=== PATIENT | male | born 1955 | race African-American/Black ===

== ENCOUNTER → 2018-01-25 | Outpatient (CLI) | payer BC ==
--- NOTE | 2018-01-25 13:12 | CT ---
EXAMINATION TYPE: CT abdomen pelvis w con DATE OF EXAM: 01/25/2018 COMPARISON: NONE HISTORY: Abdominal pain-bilateral flank pain CT DLP: 1289 mGycm CONTRAST: CT scan of the abdomen and pelvis is performed with Oral Contrast and with IV Contrast, patient injec glynn with 100 mL of Isovue 300. FINDINGS: LUNG BASES-: No visible nodule. No infiltrate. LIVER/GB: No calcified gallstones. No space occupying hepatic lesion. Biliary tree is of normal ca liber. PANCREAS: No inflammation. No distinct mass. SPLEEN: No splenic enlargement. No lesion seen. ADRENALS: No nodule. Left-sided adrenal glandular thickening. KIDNEYS/BLADDER: No hydronephrosis. No nephrolithiasis. No distinct renal mass. Urinary bladder g rossly unremarkable. BOWEL: Normal appendix. Normal bowel caliber. No inflammation. GENITAL ORGANS: No gross abnormality. LYMPH NODES: No greater than 1cm abdominal or pelvic lymph nodes are appreciated. AORTA: No significant abnormality. OSSEOUS STRUCTURES: No significant abnormality is seen. OTHER: Fat-containing left inguinal hernia. IMPRESSION: 1. Adrenal glandular hyperplasia. 2. Fat-containing left inguinal hernia.
== END | disposition home or self-care (01) ==
LOC: RADCTMAIN 10:51
PROVIDERS: ATTEND Family Medicine
DX: K40.90 Unilateral inguinal hernia, without obstruction or gangrene, not specified as recurrent (principal); E27.8 Other specified disorders of adrenal gland
CPT/HCPCS: 74177; Q9967

== ENCOUNTER → 2019-02-28 | Outpatient (CLI) | payer BC ==
--- NOTE | 2019-02-28 14:12 | MR ---
EXAMINATION TYPE: MR cervical spine wo con DATE OF EXAM: 02/28/2019 COMPARISON: None HISTORY: Radiculopathy, cervical region TECHNIQUE: Multiplanar, multisequence images of the cervical spine were acquired. C2-C3: Some left-sided neural foraminal encroachment is present due to uncovertebral joint hypertroph y, facet arthropathy. There is no significant spinal stenosis or evident disc herniation. C3-C4: Posterior extension of endplate disc complex, right base posterior disc bulge causes anterior mass effect on the thecal sac, there is likely contacting the anterior cervical cord, moderate spinal stenosis. Bilateral foraminal encroachment is present due to uncovertebral joint hypertrophy, facet arthropathy change. C4-C5: Bilateral foraminal encroachment is present. No significant spinal stenosis. Minimal posterior disc bulge present. C5-C6: Posterior broad-based disc bulge causes mild anterior mass effect on the thecal sac. There is foraminal encroachment bilaterally. No significant central stenosis. C6-C7: Minimal posterior disc bulge. No significant spinal stenosis or foraminal encroachment. C7-T1: No evidence for degenerative disc disease. No disc bulge/herniation or protrusion. No Canal stenosis. Foramina are patent bilaterally. Cervical segments are intact. There is normal alignment. Cervical spinal cord is abnormal, increase d signal present within the cervical cord to the right of midline at the C3-4 level Craniovertebral j unction relationships are within normal limits. There is loss of disc height and signal at the inter vertebral levels. Multilevel spondylosis is present, there is endplate discogenic marrow signal simon e associated. IMPRESSION: Spinal stenosis, degenerative disc disease, multilevel foraminal encroachment as described. Findings suggest signal cord change on T2-weighted sequences at C3-4 although corresponding signal abnormaliti es not seen with certainty on T1 weighted images, findings could possibly represent artifact, correla te for myelomalacia or possibly gliosis.
== END | disposition home or self-care (01) ==
LOC: RADMRIMAIN 10:32
PROVIDERS: ATTEND Internal Medicine
DX: M48.02 Spinal stenosis, cervical region (principal); M50.10 Cervical disc disorder with radiculopathy, unspecified cervical region
CPT/HCPCS: 72141

== ENCOUNTER → 2020-06-06 | Outpatient (CLI) | payer BC | END | disposition home or self-care (01) | LOC: LABPAT 09:27 | PROVIDERS: ATTEND Surgery | DX: U07.1 COVID-19 (principal) ==

== ENCOUNTER 2020-06-13 06:50 | Day surgery (SDC) | payer BC ==
[2020-06-11 15:31] VITALS: BMI 26.2
[~2020-06-13 06:50] MED LIST: LACTATED RINGERS 1,000 ML IV SCH; LIDOCAINE 1% (10MG/ML) FOR IV START INTRADERMA PRN
[2020-06-13 07:21] VITALS: TEMP 97.3
[2020-06-13 07:32] LABS: Glucose,Whole Blood 121 mg/dL (75-99)
[2020-06-13] MEDS ORDERED: fentaNYL (PF) 50 MCG/ML 2 ML AMP ONE (07:35)
[2020-06-13] MEDS ORDERED: GLYCOPYRROLATE 0.2 MG/ML 2 ML VIAL ONE (07:35)
[2020-06-13] MEDS ORDERED: LIDOCAINE 1% INJ 10MG/ML (20 ML MDV) ONE (07:35)
[2020-06-13] MEDS ORDERED: PROPOFOL 10 MG/ML 20 ML VIAL IV ONE (07:35)
--- NOTE | 2020-06-13 08:16 | P.PCN ---
Date of Procedure: 06/13/20 Preoperative Diagnosis: Screening Postoperative Diagnosis: Internal hemorrhoids Redundant colon Procedure(s) Performed: Colonoscopy Surgeon: Gray Craig Pathology: none sent Condition: stable Disposition: same day Indications for Procedure: 64-year-old male presents for an elective colonoscopy. This is done for screening purposes. He lost endoscopy was greater than 7 years ago. He has no recent complaints of blood in his stool or pain with bowel function. He has no family history of colon cancer. He presents today for screening colonoscopy. Risks, benefits and alternatives to the procedure were provided to the patient. The patient did provide consent prior to attending the endoscopy suite. Operative Findings: Internal hemorrhoids Redundant colon Description of Procedure: The patient was brought into the endoscopy suite and placed in left lateral decubitus position. Adequate sedation was achieved using conscious sedation. A digital rectal exam was performed and mild internal hemorrhoid for palpated. An endoscope was then placed in the rectum and advanced to the cecum as identified by landmarks including the appendiceal orifice and the ileocecal valve. The prep was fair. There was liquid stool noted, however the colon was visualized adequately. The colonoscope was then slowly withdrawn, examining for any mucosal and modalities. The cecum, ascending, transverse, descending and sigmoid colon were visualized adequately. There were no large neoplastic lesions noted throughout the colon. There were no obvious polyps noted throughout the colon. There was no evidence of diverticulosis. The colon was noted to be quite redundant. Retroflexion was performed in the rectum and mild internal hemorrhoids were visible. Excess air was removed, the colonoscope withdrawn and the procedure terminated. The patient was then transferred to the recovery unit in stable condition. Repeat colonoscopy should be completed in 7 years
[2020-06-13 08:20] VITALS: RESP 18
[2020-06-13 08:31] VITALS: BP 122/72; PULSE 70
== END 2020-06-13 08:58 | disposition home or self-care (01) ==
LOC: ORWHC2ENDO 06:50
PROVIDERS: ATTEND Surgery
DX: Z12.11 Encounter for screening for malignant neoplasm of colon (principal); K64.8 Other hemorrhoids; Q43.8 Other specified congenital malformations of intestine; E11.9 Type 2 diabetes mellitus without complications; I10 Essential (primary) hypertension; Z79.84 Long term (current) use of oral hypoglycemic drugs; Z79.899 Other long term (current) drug therapy; Z83.3 Family history of diabetes mellitus
CPT/HCPCS: J2001; J3010; J2704; G0121

== ENCOUNTER → 2021-01-29 | Outpatient (CLI) | payer MEDICARE ==
--- NOTE | 2021-01-30 03:14 | MR ---
EXAMINATION TYPE: MR knee RT wo con DATE OF EXAM: 01/29/2021 COMPARISON: None HISTORY: Right knee pain for 2 months following fall while running. Multiplanar multiecho imaging of the right knee was performed without contrast. There is subcutaneous edema anterior to the patella. There is small knee joint effusion. There is 2.5 x 0.5 cm popliteal cyst. The anterior and posterior cruciate ligaments are intact. The collateral ligaments are intact. There is some increased signal in the posterior horn of the medial meniscus without extension to the articu lar surface. There is no evidence of a fracture. There is 10 mm area of increased signal in the super ior patella consistent with a bone bruise. No fracture line is seen. IMPRESSION: There is small intrasubstance tear of the posterior horn of the medial meniscus. There is knee joint effusion and small popliteal cyst. Small bone bruise in the patella. No evidence of ligamentous tear. Subcutaneous edema.
== END | disposition home or self-care (01) ==
LOC: RADMRIMAIN 13:21
PROVIDERS: ATTEND Internal Medicine
DX: M23.221 Derangement of posterior horn of medial meniscus due to old tear or injury, right knee (principal); M71.21 Synovial cyst of popliteal space [Baker], right knee; S80.01XA Contusion of right knee, initial encounter

== ENCOUNTER → 2022-05-18 | Outpatient (CLI) | payer MEDICARE ==
--- NOTE | 2022-05-18 15:49 | XR ---
EXAM TYPE: LUMBAR SPINE X RAY SERIES COMPARISON: NONE HISTORY: Pain TECHNIQUE: 4 views are submitted. FINDINGS: Alignment is anatomic. The pedicles are intact. The transverse processes are intact. There is hype rtrophic changes of the spine with facet arthropathy L4-5 and L5-S1. Degenerative disc disease L4-5 a nd most marked at L5-S1. No spondylolysis. IMPRESSION: 1. Degenerative disc disease lower lumbar spine with facet arthropathy
--- NOTE | 2022-05-18 15:51 | XR ---
EXAMINATION TYPE: XR ribs bilateral DATE OF EXAM: 05/18/2022 COMPARISON: NONE HISTORY: Pain TECHNIQUE: 4 views of the bilateral ribs are submitted. FINDINGS: Rib cage is intact. IMPRESSION: No acute displaced rib fracture.
== END | disposition home or self-care (01) ==
LOC: RADXRMAIN 15:16
PROVIDERS: ATTEND Internal Medicine
DX: M51.36 Other intervertebral disc degeneration, lumbar region (principal); M47.816 Spondylosis without myelopathy or radiculopathy, lumbar region; R07.89 Other chest pain
CPT/HCPCS: 71110; 72110

== ENCOUNTER → 2022-12-15 | Outpatient (CLI) | payer MEDICARE ==
[2022-12-15 15:09] LABS: HCT 43.6 % (39.6-50.0); HGB 13.9 g/dL (13.0-17.0); MCH 27.3 pg (27.0-32.0); MCHC 31.9 g/dL (32.0-37.0); MCV 85.5 fL (80.0-97.0); Mean Platelet Volume 11.4 fL (9.5-12.2); NRBC Per 100 WBC 0 /100 WBCS (0.0-0.0); Platelet Count 179 X 10*3/uL (140-440); RDW 13.2 % (11.5-14.5)
[2022-12-15 15:50] LABS: ALT 29 U/L (10-49); AST 24 U/L (14-35); African American GFR (CKD) 89.9 (60.0-200.0); Albumin 4.8 g/dL (3.8-4.9); Alkaline Phosphatase 75 U/L (41-126); Blood Urea Nitrogen 15.1 mg/dL (9.0-27.0); Carbon Dioxide 26.7 mmol/L (20.0-27.5); Chloride 101 mmol/L (96-109); Chol/HDL Ratio 4.65 Ratio; Globulin 3.2 g/dL (1.6-3.3); Glucose 100 mg/dL (70-110); LDL Cholesterol,Calculated 223.5 mg/dL (0.0-131.0); Non-African American GFR(CKD) 77.5 (60.0-200.0); Potassium 4.1 mmol/L (3.5-5.5); Sodium 139 mmol/L (135-145); VLDL Calculation 16.68 mg/dL (5.00-40.00)
== END | disposition home or self-care (01) ==
LOC: LABWHC1 11:30
PROVIDERS: ATTEND Internal Medicine
DX: Z00.00 Encounter for general adult medical examination without abnormal findings (principal); Z12.5 Encounter for screening for malignant neoplasm of prostate
CPT/HCPCS: 84439; 80061; 80053; 84443; 85027; 83036; 36415; G0103

== ENCOUNTER → 2022-12-16 | Outpatient (CLI) | payer MEDICARE ==
--- NOTE | 2022-12-16 17:43 | US ---
EXAMINATION TYPE: US kidneys/renal and bladder DATE OF EXAM: 12/16/2022 COMPARISON: None CLINICAL INDICATION: Male, 67 years old with history of N23 UNSPECIFIED RENAL COLIC; Bilateral flank pain. EXAM MEASUREMENTS: Right Kidney: 10.3 x 4.7 x 4.4 cm Left Kidney: 8.7 x 4.8 x 5.2 cm Right Kidney: No hydronephrosis or masses seen Left Kidney: Focal cortical lobulation at the mid pole measuring Upper medial/mid cortical focal area , nodular cortex vs dromedary hump vs mass measuring 2.2 x 2.7 x 2.5 Bladder: distended, anechoic Bilateral Jets seen IMPRESSION: 1. A 2.7 cm focal contour lobulation at the left mid kidney. Possible dromedary hump or lobulat ion. Mass is considered less likely. 3 month follow-up ultrasound to reassess. 2. No hydronephrosis on either side.
== END | disposition home or self-care (01) ==
LOC: RADUSWWP 13:25
PROVIDERS: ATTEND Internal Medicine
DX: N23 Unspecified renal colic (principal)
CPT/HCPCS: 76770

== ENCOUNTER → 2024-02-21 | Outpatient (CLI) | payer MEDICARE ==
[2024-02-21 15:05] LABS: HCT 43.4 % (39.6-50.0); HGB 14.2 g/dL (13.0-17.0); MCH 28.6 pg (27.0-32.0); MCHC 32.7 g/dL (32.0-37.0); MCV 87.5 FL (80.0-97.0); Mean Platelet Volume 11.3 FL (9.5-12.2); NRBC Per 100 WBC 0 X 10*3/uL (0.00-0.01); Platelet Count 235 X 10*3/uL (140-440); RBC 4.96 X 10*6/uL (4.40-5.60); RDW 13.3 % (11.5-14.5)
[2024-02-21 16:14] LABS: ALT 19 U/L (10-49); AST 21 U/L (14-35); Albumin 4.8 g/dL (3.8-4.9); Albumin/Globulin Ratio 1.66 Ratio (1.60-3.17); Alkaline Phosphatase 87 U/L (41-126); BUN/Creat Ratio 18.91 Ratio (12.00-20.00); Blood Urea Nitrogen 20.8 mg/dL (9.0-27.0); Calcium 9.8 mg/dL (8.7-10.3); Carbon Dioxide 25.2 mmol/L (21.6-31.8); Chloride 101 mmol/L (96-109); Chol/HDL Ratio 3.93 Ratio; Globulin 2.9 g/dL (1.6-3.3); Glucose 102 mg/dL (70-110); LDL Cholesterol,Calculated 171.8 mg/dL (0.0-131.0); Potassium 4.5 mmol/L (3.5-5.5); Sodium 140 mmol/L (135-145); T4, Free (Free Thyroxine) 1.48 ng/dL (0.80-1.80); Total Bilirubin 0.3 mg/dL (0.3-1.2); Total Protein 7.7 g/dL (6.2-8.2); VLDL Calculation 12.32 mg/dL (5.00-40.00)
== END | disposition home or self-care (01) ==
LOC: LABWHC1 09:20
PROVIDERS: ATTEND Internal Medicine
DX: Z00.00 Encounter for general adult medical examination without abnormal findings (principal); Z12.5 Encounter for screening for malignant neoplasm of prostate
CPT/HCPCS: 84439; 80061; 80053; 84443; 85027; 83036; 36415; G0103